=== PATIENT | female | born 1985 | race Caucasian/White ===

== ENCOUNTER 2016-11-16 22:40 | Emergency (ER) | payer OTHER ==
[~2016-11-16] VITALS: Ht 154.9 cm; Wt 45.5 kg
[2016-11-16 23:22] LABS: APPEARANCE,URINE CLOUDY (CLEAR); GLUCOSE, URINE (UA) NEGATIVE (NEGATIVE); KETONES,URINE NEGATIVE (NEGATIVE); LEUKOCYTE ESTERASE ,URINE NEGATIVE (NEGATIVE); OCCULT BLOOD,URINE NEGATIVE (NEGATIVE); PH,URINE 6.5 (5.0-8.0); PROTEIN,URINE NEGATIVE (NEGATIVE)
[2016-11-16 23:24] LABS: ADD UA MICROSCOPIC NO
[2016-11-17 00:49] VITALS: BP 119/82
== END 2016-11-17 00:51 | disposition home or self-care (01) ==
LOC: EMS 22:44
DX: R10.32 Left lower quadrant pain (principal)
CPT/HCPCS: 87210; 87220; 99284

== ENCOUNTER 2017-05-19 10:30 | Emergency (ER) | payer OTHER ==
[~2017-05-19] VITALS: Ht 154.9 cm; Wt 50.0 kg
[2017-05-19] MEDS ORDERED: CITA10TA68 PO (10:32)
[2017-05-19] MEDS ORDERED: LIDOCAINE HCL 1% 20 ML VIAL INJ ONE (13:15)
[2017-05-19] MEDS ORDERED: PERTUSS(ACELL),DIPH,TET VAC/PF 0.5 ML VIAL IM ONE (13:15)
[2017-05-19] MEDS ORDERED: LIDOCAINE HCL 1% 10 ML VIAL INJ ONE (13:30)
[2017-05-19] MEDS ORDERED: LIDOCAINE HCL 1%/EPI 1:200,000/PF 30 ML VIAL INJ ONE (13:45)
[2017-05-19 15:00] VITALS: BP 118/67
[2017-05-19] MEDS ORDERED: BACITRACIN 0.9 GM PACKET OINTMENT TP ONE (15:00)
== END 2017-05-19 15:22 | disposition home or self-care (01) ==
LOC: EMS 10:32
DX: S51.812A Laceration without foreign body of left forearm, initial encounter (principal); R03.0 Elevated blood-pressure reading, without diagnosis of hypertension; F41.9 Anxiety disorder, unspecified; W25.XXXA Contact with sharp glass, initial encounter; Y93.G1 Activity, food preparation and clean up; Y92.89 Other specified places as the place of occurrence of the external cause; Y99.8 Other external cause status
CPT/HCPCS: 12002; 90471; 90715; 99283; J3490 ×2

== ENCOUNTER 2017-05-26 23:01 | Emergency (ER) | payer OTHER ==
[~2017-05-26] VITALS: Ht 152.4 cm; Wt 51.0 kg
[~2017-05-26 23:01] MED LIST: CITA10TA68 PO
[2017-05-27 00:45] VITALS: BP 110/78
== END 2017-05-27 01:23 | disposition home or self-care (01) ==
LOC: EMS 23:02
DX: T14.8XXD Other injury of unspecified body region, subsequent encounter (principal); X58.XXXD Exposure to other specified factors, subsequent encounter
CPT/HCPCS: 99281